=== PATIENT | female | born 1980 | race Caucasian/White ===

== ENCOUNTER 2016-05-28 11:05 | Outpatient (CLI) | payer BC | END 2016-05-28 11:06 | disposition home or self-care (01) | DX: Z00.00 Encounter for general adult medical examination without abnormal findings (principal) ==

== ENCOUNTER 2017-02-15 12:48 | Emergency (ER) | payer BC ==
[2017-02-15 13:26] LABS: BASOPHILS # (AUTO) 0.1 10^3/uL (0.0-0.1); EOSINOPHILS # (AUTO) 0.1 10^3/uL (0.0-0.7); EOSINOPHILS % (AUTO) 0.4 %; HCT - HEMATOCRIT 41.2 % (37.0-47.0); HGB - HEMOGLOBIN 13.9 g/dL (12.0-16.0); LYMPHOCYTES # (AUTO) 1.5 10^3/uL (1.5-3.5); LYMPHOCYTES % (AUTO) 10.5 %; MEAN CORPUSCULAR HEMOGLOBIN 29.2 pg (27.0-31.0); MEAN CORPUSCULAR HGB CONC 33.7 g/dL (32.0-36.0); MEAN CORPUSCULAR VOLUME 86.5 fL (81.0-99.0); MEAN PLATELET VOLUME 8.3 fL (7.9-10.8); MONOCYTES # (AUTO) 0.6 10^3/uL (0.0-1.0); MONOCYTES % (AUTO) 4.4 %; NEUTROPHILS # (AUTO) 12.2 10^3/uL (1.5-6.6); NEUTROPHILS % (AUTO) 83.7 %; RED BLOOD COUNT 4.76 10^6/uL (4.20-5.40); RED CELL DISTRIBUTION WIDTH 12.6 % (12.0-15.0); UNCORRECTED WHITE BLOOD COUNT 14.6 x10^3/uL; WHITE BLOOD COUNT 14.6 x10^3/uL (4.8-10.8)
[2017-02-15 13:27] LABS: BILIRUBIN,URINE NEGATIVE (NEGATIVE)
[2017-02-15 13:30] LABS: HCG UR QUAL NEGATIVE; UA w/ MICROSCOPIC CHARGE YES
[2017-02-15 13:37] LABS: WBC,URINE 0-3 /HPF (0-5)
[2017-02-15 13:39] LABS: UR CULTURE IF IND NOT INDICATED
[2017-02-15 13:39] LABS: ALBUMIN/GLOBULIN RATIO 1.4 (1.0-2.2); BILIRUBIN,TOTAL 0.5 mg/dL (0.2-1.0); CALCIUM 9.5 mg/dL (8.5-10.3); POTASSIUM 3.9 mmol/L (3.5-5.0); TOTAL PROTEIN 7.7 g/dL (6.7-8.2)
--- NOTE | 2017-02-15 14:28 | ED Physician Documentation ---
PD HPI ABD PAIN - Stated complaint Stated Complaint: LEFT SIDE PX - Chief complaint Chief Complaint: Abd Pain - History obtained from History obtained from: Patient - History of Present Illness Timing - onset: Today Timing - duration: Hours Timing - details: Abrupt onset, Still present Quality: Aching, Sharp, Pain Location: LLQ Radiation: Left flank Improved by: No: Eating, Position Worsened by: No: Eating, Moving, Breathing, Position, Palpation Associated symptoms: Nausea, Vomiting. 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 : Kidney stones - Present Medications Home Medications: Ambulatory Orders Medication Instructions Recorded Confirmed Naproxen 375 mg PO BID #20 tablet 02/15/17 Ondansetron Odt [Zofran] 4 mg TL Q6H PRN #15 tablet 02/15/17 Oxycodone HCl/Acetaminophen 1 each PO Q6H PRN #20 tablet 02/15/17 [Percocet 5-325 mg Tablet] Tamsulosin [Flomax] 0.4 mg PO DAILY #5 capsule 02/15/17 - Allergies Allergies/Adverse Reactions: Allergies Allergy/AdvReac Type Severity Reaction Status Date / Time Penicillins Allergy Unknown Verified 02/15/17 13:05 - Social History Does the pt smoke?: No Smoking Status: Never smoker PD ED PE NORMAL - Vitals Vital signs reviewed: Yes - General General: Alert and oriented X 3, Well developed/nourished, Other (appears in significant pain. ) - Neck Neck: Supple, no meningeal sign, No adenopathy - Cardiac Cardiac: RRR, No murmur - Respiratory Respiratory: Clear bilaterally - Abdomen Abdomen: Normal bowel sounds, Soft, Non tender, No organomegaly - Female Female : Deferred - Rectal Rectal: Deferred - Back Back: Other (left CVA tender) - Derm Derm: Normal color, Warm and dry, No rash Results - Vitals Vitals: Vital Signs - 24 hr 02/15/17 02/15/17 13:03 15:47 Temperature 36.2 C L Heart Rate 62 52 L Respiratory 18 16 Rate Blood Pressure 136/96 H 111/70 O2 Saturation 100 99 Oxygen O2 Source Room air - Labs Labs: Laboratory Tests 02/15/17 02/15/17 02/15/17 13:17 13:21 13:21 WBC 14.6 H RBC 4.76 Hgb 13.9 Hct 41.2 MCV 86.5 MCH 29.2 MCHC 33.7 RDW 12.6 Plt Count 288 MPV 8.3 Neut # 12.2 H Lymph # 1.5 [place] # 0.6 Eos # 0.1 Baso # 0.1 Absolute Nucleated RBC 0.00 Nucleated RBC % 0.0 Sodium 139 Potassium 3.9 Chloride 101 Carbon Dioxide 25 Anion Gap 13.0 BUN 15 Creatinine 1.0 Estimated GFR (MDRD) 63 L Glucose 133 H Calcium 9.5 Total Bilirubin 0.5 AST 22 ALT 25 Alkaline Phosphatase 98 Total Protein 7.7 Albumin 4.5 Globulin 3.2 Albumin/Globulin Ratio 1.4 Lipase 26 Urine Color LT RED Urine Clarity CLOUDY Urine pH 6.0 Ur Specific [place] 1.015 Urine Protein NEGATIVE Urine Glucose (UA) NEGATIVE Urine Ketones NEGATIVE Urine Occult Blood LARGE H Urine Nitrite NEGATIVE Urine Bilirubin NEGATIVE Urine Urobilinogen 0.2 (NORMAL) Ur Leukocyte Esterase NEGATIVE Urine RBC TNTC H Urine WBC 0-3 Ur Squamous Epith Cells MOD Squamous H Urine Bacteria Many H Urine Casts 0-2 Hyaline Casts Ur Microscopic Review INDICATED Urine Culture Comments NOT INDICATED Urine HCG, Qual NEGATIVE - Rads (name of study) KUB CT Radiology: Prelim report reviewed, EMP read contemporaneously (5 mm stone at distal ureter at UVJ. Mod hydronephrosis. ) PD MEDICAL DECISION MAKING - ED course Complexity details: reviewed results (5 mm stone distal ureter.), re-evaluated patient (pain much improved with IV meds. ), considered differential, d/w patient Departure - Departure Disposition: 01 Home, Self Care Clinical Impression: Ureterolithiasis Abdominal pain Qualifiers: Abdominal location: left lower quadrant Qualified Code(s): R10.32 - Left lower quadrant pain Condition: Stable Record reviewed to determine appropriate education?: Yes Instructions: ED Stone Renal W Colic Follow-Up: Edward Nam DO [Provider Admit Priv/Credential] - Prescriptions: Naproxen 375 mg PO BID #20 tablet Ondansetron Odt [Zofran] 4 mg TL Q6H PRN #15 tablet PRN Reason: Nausea / Vomiting Oxycodone HCl/Acetaminophen [Percocet 5-325 mg Tablet] 1 each PO Q6H PRN #20 tablet PRN Reason: Pain Tamsulosin [Flomax] 0.4 mg PO DAILY #5 capsule Comments: Drink lots of fluids. Naproxen anti-inflammatory twice daily. Ondansetron if needed for nausea. Tamsulosin daily until the stone passes to try to reduce spasming of the ureter. Add Tylenol or Percocet if needed for pain. Follow-up with your primary care if not all better over the next couple of days. Return sooner for severe pain again despite medications. Discharge Date/Time: 02/15/17 17:01
[2017-02-15] MEDS ORDERED: KETOROLAC 60 MG/2 ML VIAL IVP STA (14:36)
[2017-02-15] MEDS ORDERED: SODIUM CHLORIDE 0.9% 1,000 ML IV ONE (14:36)
[2017-02-15] MEDS ORDERED: HYDROmorphone 1 MG/ML SYRINGE IVP STA (14:36)
[2017-02-15] MEDS ORDERED: ONDANSETRON 4 MG/2 ML VIAL IVP STA (14:36)
[2017-02-15] MEDS ORDERED: HYDROmorphone 1 MG/ML SYRINGE ONE (14:50)
[2017-02-15] MEDS ORDERED: ONDANSETRON 4 MG/2 ML VIAL ONE (14:50)
[2017-02-15] MEDS ORDERED: KETOROLAC 30 MG/ML VIAL ONE (14:51)
[2017-02-15] MEDS ORDERED: TAMSULOSIN 0.4 MG CAPSULE PO STA (15:03)
--- NOTE | 2017-02-15 15:20 | CT Preliminary Report ---
Exam: CT KUB IMPRESSION: 1. Left UVJ stone on the lateral side of the UVJ, with moderate to marked ureterectasis and hydroneph rosis. 2. Multiple additional nonobstructing bilateral renal calculi. 3. Other chronic or incidental findings. [facility] SITE ID: [id number]
--- NOTE | 2017-02-15 15:22 | CT Report ---
EXAM: CT ABDOMEN AND PELVIS (CT KUB) EXAM DATE: 02/15/2017 02:57 PM. CLINICAL HISTORY: Left flank pain, h/o stones. COMPARISONS: 12/31/2015. TECHNIQUE: Routine axial helical CT imaging was performed through the abdomen and pelvis without IV c ontrast. Reconstructions: Coronal and sagittal. In accordance with CT protocol optimization, one or more of the following dose reduction techniques w ere utilized for this exam: automated exposure control, adjustment of mA and/or KV based on patient s ize, or use of iterative reconstructive technique. FINDINGS: Lung Bases: Unremarkable. Right Kidney/Ureter: Multiple nonobstructing calculi and stone clusters, the largest measuring about 3 mm. No ureteral stone or hydronephrosis. Otherwise unremarkable. Left Kidney/Ureter: 5 mm stone on the bladder side of the left UVJ with moderate ureterectasis and hy dronephrosis. A large lower pole parapelvic cyst contributes to the appearance of hydronephrosis. At least 6 additional nonobstructing renal calculi, the largest measuring about 4 mm. Mild perinephric f at stranding. Other Solid Organs: Noncontrast images of the solid organs are grossly unremarkable. Gallbladder/Bile Ducts: Unremarkable. Peritoneal Cavity: No free fluid, free air or ronni adenopathy. Bowel is grossly unremarkable. Pelvic Organs: Partially contracted urinary bladder. Fibroid uterus. Vasculature: Unremarkable. Other: Minimal grade 1 anterolisthesis of L5 due to bilateral spondylolysis. IMPRESSION: 1. Left UVJ stone on the lateral side of the UVJ, with moderate to marked ureterectasis and hydroneph rosis. 2. Multiple additional nonobstructing bilateral renal calculi. 3. Other chronic or incidental findings. [facility] Referring Provider Line: [phone] SITE ID: [id number]
[2017-02-15] MEDS ORDERED: TAMSULOSIN 0.4 MG CAPSULE ONE (15:27)
[2017-02-15 15:48] VITALS: BP 111/70
== END 2017-02-15 17:01 | disposition home or self-care (01) ==
LOC: ED 12:48
DX: N13.2 Hydronephrosis with renal and ureteral calculous obstruction (principal); Z87.442 Personal history of urinary calculi
CPT/HCPCS: 36415; 74176; 80053; 81001; 81025; 83690; 85025; 96361; 96374; 96375; 99283; 99284; A9270; J1170; 81003; 87086

== ENCOUNTER 2021-03-14 11:08 | Emergency (ER) | payer BC ==
[2021-03-14 11:43] LABS: BASOPHILS % (AUTO) 0.2 %; EOSINOPHILS # (AUTO) 0.2 10^3/uL (0.0-0.7); EOSINOPHILS % (AUTO) 1.9 %; LYMPHOCYTES # (AUTO) 2.8 10^3/uL (1.5-3.5); LYMPHOCYTES % (AUTO) 31.4 %; MEAN CORPUSCULAR HEMOGLOBIN 29.6 pg (27.0-31.0); MEAN CORPUSCULAR HGB CONC 33.3 g/dL (32.0-36.0); MEAN CORPUSCULAR VOLUME 88.8 fL (81.0-99.0); MEAN PLATELET VOLUME 9.6 fL (7.9-10.8); MONOCYTES # (AUTO) 0.5 10^3/uL (0.0-1.0); MONOCYTES % (AUTO) 5.9 %; NEUTROPHILS # (AUTO) 5.3 10^3/uL (1.5-6.6); NEUTROPHILS % (AUTO) 60.3 %; PLT - PLATELET COUNT 312 10^3/uL (130-450); RED BLOOD COUNT 4.39 10^6/uL (4.20-5.40); RED CELL DISTRIBUTION WIDTH 11.9 % (12.0-15.0); WHITE BLOOD COUNT 8.9 x10^3/uL (4.8-10.8)
[2021-03-14 11:44] LABS: BILIRUBIN,URINE NEGATIVE (NEGATIVE); GLUCOSE, URINE (UA) NEGATIVE (NEGATIVE); KETONES,URINE (UA) NEGATIVE (NEGATIVE); LEUKOCYTE ESTERASE, URINE SMALL (NEGATIVE); NITRITE,URINE NEGATIVE (NEGATIVE); OCCULT BLOOD,URINE MODERATE (NEGATIVE); PH,URINE 5.5 PH (5.0-7.5); PROTEIN,URINE NEGATIVE (NEGATIVE); UROBILINOGEN,URINE 0.2 (NORMAL) E.U./dL (NORMAL)
[2021-03-14 11:46] LABS: CLARITY,URINE CLEAR (CLEAR); HCG UR QUAL NEGATIVE
[2021-03-14 11:55] LABS: ALBUMIN 4.3 g/dL (3.2-5.5); ALBUMIN/GLOBULIN RATIO 1.6 (1.0-2.2); BILIRUBIN,TOTAL 0.5 mg/dL (0.2-1.0); CREATININE 0.7 mg/dL (0.4-1.0); POTASSIUM 3.7 mmol/L (3.5-5.0)
[2021-03-14 12:02] LABS: SQUAMOUS EPITHELIAL CELL,UR MOD Squamous (<= Few)
[2021-03-14 12:03] LABS: BACTERIA,URINE Moderate /HPF (None Seen)
[2021-03-14] MEDS ORDERED: HYDROmorphone 1 MG/ML CARPUJECT IVP STA (12:42)
[2021-03-14] MEDS ORDERED: ONDANSETRON 4 MG/2 ML VIAL IVP STA (12:42)
--- NOTE | 2021-03-14 12:44 | ED Physician Documentation ---
History of Present Illness - Stated complaint Stated Complaint: L SIDE PX - Chief complaint Chief Complaint: Abd Pain - Additonal information Additional information: 40-year-old female presents emergency department for evaluation of acute left- sided flank pain. Symptoms began yesterday afternoon. She did have some mild dysuria. No fevers. Persistent nausea but no vomiting. This is similar to previous renal colic she has had though none since 2017. No history of lithotripsy or stenting. Denies any history of diabetes or hypertension. She did take some ibuprofen with minimal relief of symptoms. Review of Systems Constitutional: denies: Fever, Myalgias Eyes: reports: Reviewed and negative Nose: reports: Reviewed and negative Throat: reports: Reviewed and negative Cardiac: reports: Reviewed and negative Respiratory: reports: Reviewed and negative GI: reports: Abdominal Pain, Nausea. denies: Vomiting, Constipation, Diarrhea : reports: Hematuria. 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 : Kidney stones - Past Surgical History Past Surgical History: No - Present Medications Home Medications: Ambulatory Orders Medication Instructions Recorded Confirmed Naproxen 375 mg PO BID #20 tablet 02/15/17 Ondansetron Odt [Zofran] 4 mg TL Q6H PRN #15 tablet 02/15/17 Oxycodone HCl/Acetaminophen 1 each PO Q6H PRN #20 tablet 02/15/17 [Percocet 5-325 mg Tablet] Tamsulosin [Flomax] 0.4 mg PO DAILY #5 capsule 02/15/17 HYDROcod/ACETAM 5/325 [[place] 5/325] 1 tablet PO BID PRN #10 tablet 03/14/21 Tamsulosin HCl [Flomax] 0.4 mg PO DAILY #30 cap 03/14/21 - Allergies Allergies/Adverse Reactions: Allergies Allergy/AdvReac Type Severity Reaction Status Date / Time Penicillins Allergy Unknown Verified 03/14/21 11:18 - Social History Does the pt smoke?: No Smoking Status: Never smoker Does the pt drink ETOH?: No Does the pt have substance abuse?: No - Immunizations Immunizations are current?: Yes PD ED PE NORMAL - General General: Alert and oriented X 3. No: No acute distress (Appears uncomfortable and in pain) - Neck Neck: Supple, no meningeal sign - Cardiac Cardiac: RRR, No murmur, No gallop, Strong equal pulses - Respiratory Respiratory: No respiratory distress, Clear bilaterally - Abdomen Abdomen: Normal bowel sounds, Soft. No: Non tender (Tenderness of the left CVA and flank. No guarding or rebound.) - Back Back: No spinal TTP. No: No CVA TTP (Left CVA) - Derm Derm: Normal color, Warm and dry - Extremities Extremities: No deformity - Neuro Neuro: Alert and oriented X 3 Eye Opening: Spontaneous Motor: Obeys Commands Verbal: Oriented GCS Score: 15 Results - Vitals Vitals: Vital Signs - 24 hr 03/14/21 03/14/21 11:15 13:04 Temperature 36.5 C Heart Rate 74 74 Respiratory 17 16 Rate Blood Pressure 146/101 H 125/78 O2 Saturation 99 98 Oxygen O2 Source Room air - Labs Labs: Laboratory Tests 03/14/21 03/14/21 03/14/21 11:28 11:28 11:28 WBC 8.9 RBC 4.39 Hgb 13.0 Hct 39.0 MCV 88.8 MCH 29.6 MCHC 33.3 RDW 11.9 L Plt Count 312 MPV 9.6 Neut # (Auto) 5.3 Lymph # (Auto) 2.8 [place] # (Auto) 0.5 Eos # (Auto) 0.2 Baso # (Auto) 0.0 Absolute Nucleated RBC 0.00 Nucleated RBC % 0.0 Sodium 136 Potassium 3.7 Chloride 102 Carbon Dioxide 25 Anion Gap 9.0 BUN 17 Creatinine 0.7 Estimated GFR (MDRD) 94 Glucose 106 H Calcium 9.0 Total Bilirubin 0.5 AST 15 ALT 19 Alkaline Phosphatase 106 Total Protein 7.0 Albumin 4.3 Globulin 2.7 Albumin/Globulin Ratio 1.6 Lipase 34 Urine Color YELLOW Urine Clarity CLEAR Urine pH 5.5 Ur Specific [place] 1.025 Urine Protein NEGATIVE Urine Glucose (UA) NEGATIVE Urine Ketones NEGATIVE Urine Occult Blood MODERATE H Urine Nitrite NEGATIVE Urine Bilirubin NEGATIVE Urine Urobilinogen 0.2 (NORMAL) Ur Leukocyte Esterase SMALL H Urine RBC 11-25 H Urine WBC 6-10 H Ur Squamous Epith Cells MOD Squamous H Urine Bacteria Moderate H Ur Microscopic Review INDICATED Urine Culture Comments NOT INDICATED Urine HCG, Qual NEGATIVE - Rads (name of study) Ct abd/pelvis w Radiology: Final report received (Right hydronephrosis and hydroureter with a 9 mm stone at the right UVJ) PD MEDICAL DECISION MAKING - ED course Complexity details: reviewed old records, reviewed results, re-evaluated patient, d/w patient ED course: 40-year-old female presents to the emergency department with acute onset left flank pain. Some nausea but no vomiting. She does have a history of nephrolithiasis in the past and this feels similar. No fevers. On exam she is quite tender in the left flank and CVA area. Subsequent labs showed no leukocytosis and normal renal function. Her urine does have ronni hematuria. It is nitrite negative and does show moderate squames and bacteria. No culture indicated. Patient is denying dysuria urgency or frequency. CT of the abdomen showed right sided UVJ stone measuring 9 mm with associated hydroureter and hydronephrosis. There are multiple nonobstructing left-sided kidney stones. 9 this finding was discussed with the patient. We discussed that she likely needs evaluation by a urologist for consideration of this nonobstructing stone there. However given lack of fevers leukocytosis or urinary symptoms lower suspicion for septic stone. Patient will be referred to [facility] urology in follow-up. A prescription for Flomax as well as a limited amount of hydrocodone is being sent to the pharmacy. Emergent return precautions were discussed for worsening symptoms. I am prescribing a short course of short-acting opioid pain medication for this patient. 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 I have discussed that the opioids are for short term therapy only, and will not be refilled from the ED. Departure - Departure Disposition: 01 Home, Self Care Clinical Impression: Hydronephrosis of right kidney, Hydroureter, right, Left nephrolithiasis Condition: Stable Record reviewed to determine appropriate education?: Yes Instructions: Hydronephrosis Ch Follow-Up: Justin Roman MD [Primary Care Provider] - Fiona Saeed MD [Physician No Access] - Prescriptions: Tamsulosin HCl [Flomax] 0.4 mg PO DAILY #30 cap HYDROcod/ACETAM 5/325 [[place] 5/325] 1 tablet PO BID PRN #10 tablet PRN Reason: Pain Comments: Vickie you were seen in the ER today for pain in your left flank. You do have obvious kidney stones on the left side. However these are not obstructing. The right-sided kidney is however swollen and we do see a 9 mm UVJ stone. You do need referral to a urologist to discuss whether lithotripsy or stenting is appropriate. Discuss this ED visit with Dr. Roman as soon as possible as he will need to make a referral. If at any point you are having worsening symptoms, any fevers, flank pain vomiting or fainting episodes and please return immediately to the ER. Please fill the prescription for the Flomax and begin taking daily. This should help the stones pass. Have also sent a limited prescription for Vicodin to the [facility] in [place]. In general take this for severe pain only. Otherwise I do recommend Tylenol ibuprofen for analgesia. I am prescribing a short course of narcotic pain medication for you. These are potentially dangerous and addictive medications that should be used carefully. These medications may constipate you. Take an [id number] stool softener (docusate) twice daily with plenty of water while taking these medications. If you go 24 hours without a bowel movement, take [id number] miralax, per package instructions. Do not drink or drive while taking these medications. If you received narcotic or sedating medications while in the emergency department, do not drive for 24 hours. Store this medication in a safe, secure place and out of reach of children. It is a violation of federal law to give or sell this medication to another person or to use in a manner other than prescribed. The ED will not refill narcotic prescriptions, including prescriptions lost or stolen. To dispose of unwanted medications: 1. [facility] at [address] in [place] has a medication drop box. They accept prescription medications (in pill form) Wednesday through Wednesday 9:00 a.m. to 5:00 p.m. 2. The [facility] [employer] accepts prescription medications (in pill form only) for disposal year round. Call for more information. 3. Contact the [facility] for the next [facility] sponsored prescription drug collection event. , [phone], or [phone]; Note that many narcotic pain relievers also contain Tylenol/acetaminophen. Please ensure that your total dose of acetaminophen from all sources does not exceed 3 g (3000 mg) per day.
[2021-03-14] MEDS ORDERED: SODIUM CHLORIDE 0.9% 1,000 ML IV STA (13:56)
[2021-03-14] MEDS ORDERED: IOPAMIDOL-300 100 ML VIAL IVP ONE (14:29)
--- NOTE | 2021-03-14 14:42 | CT Report ---
PROCEDURE: Abdomen/Pelvis W INDICATIONS: left flank pain; hx of renal colic; ? obs CONTRAST: IV CONTRAST: Isovue 300 ml: 100 PO CONTRAST: *NO PO CONTRAST TECHNIQUE: After the administration of intravenous contrast, 5 mm thick sections acquired from the diaphragms to the symphysis. 5 mm thick coronal and sagittal reformats were acquired. For radiation dose reducti on, the following was used: automated exposure control, adjustment of mA and/or kV according to eleanor ent size. COMPARISON: December 31, 2015 FINDINGS: Inferior chest: No focal consolidation, pleural effusion, or pneumothorax. No cardiomegaly or perica rdial effusion. Gallbladder: The gallbladder is distended with a smooth thin wall. Biliary tree: No intra-or extrahepatic biliary ductal dilatation. Liver: The liver demonstrates normal enhancement, size, and contour. Spleen: Normal enhancement and contour. Mildly enlarged, measuring up to 14.1 cm. Pancreas: No contour deforming mass or inflammatory change. Adrenals: Normal size without masses. Kidneys/ureters: Right hydronephrosis with marked dilatation of the renal pelvis and dilatation of th e ureter throughout its course. Residual nephrolithiasis is demonstrated. Left nephrolithiasis without evidence of obstructive uropathy. No significant hydronephrosis or perin ephric stranding. A 5.1 cm hypoattenuating lesion is seen within the lower pole, parapelvic region, m ost consistent with a cyst. Vasculature: No evidence of aneurysm or other significant vascular pathology. Lymphatic system: No pathologic enlargement by size criteria. GI/mesentery: No evidence of intestinal obstruction. Normal appearance of the appendix. Peritoneum/Retroperitoneum: No free intraperitoneal gas or large collection. Urinary bladder: The urinary bladder is distended with a smooth thin wall. A 9 mm calculus is seen a t the right UVJ. Pelvic organs: Myomatous change of the uterus. Bones/soft tissues: No significant abnormality. IMPRESSION: 1.Right hydronephrosis and hydroureter with a 9 mm complex of the right UVJ. Reviewed by: Steve White MD on 03/14/2021 2:40 PM PST Approved by: Steve White MD on 03/14/2021 2:40 PM PST Station ID: [id number]
[2021-03-14] MEDS ORDERED: TAMSULOSIN 0.4 MG CAPSULE PO STA (14:54)
[2021-03-14 15:44] VITALS: BP 135/82
== END 2021-03-14 15:44 | disposition home or self-care (01) ==
LOC: ED 11:08
DX: N13.2 Hydronephrosis with renal and ureteral calculous obstruction (principal)
CPT/HCPCS: 36415; 74177; 80053; 81001; 81025; 83690; 85025; 96374; 96375; 99284; A9270; J1170; 81003; 87086